=== PATIENT | male | born 1990 | race Two or more races ===

== ENCOUNTER 2017-10-09 02:46 | Emergency (ER) | payer SELFPAY ==
[~2017-10-09] VITALS: Ht 170.2 cm; Wt 95.3 kg
[2017-10-09 04:44] VITALS: BP 115/68
== END 2017-10-09 05:58 | disposition home or self-care (01) ==
LOC: ER 02:49
DX: T78.40XA Allergy, unspecified, initial encounter (principal)
CPT/HCPCS: 73140

== ENCOUNTER 2019-03-20 16:02 | Emergency (ER) | payer MEDICAID ==
[~2019-03-20] VITALS: Ht 177.8 cm; Wt 99.8 kg
[2019-03-20 17:53] VITALS: BP 102/73
[2019-03-20] MEDS ORDERED: SILVER SULFADIAZINE 1 % TOPICAL CREAM 50GM TOP ONE (20:45)
[2019-03-20] MEDS ORDERED: TETANUS-DIPTH-ACEL PERTUSSIS 0.5ML SYRG IM ONE (21:30)
[2019-03-20] MEDS ORDERED: methylPREDNISolone SOD SUCC 125 MG/2 ML VL IM ONE (21:30)
[2019-03-20] MEDS ORDERED: cefTRIAXone SOD 1,000 MG VL IM ONE (21:30)
[2019-03-20] MEDS ORDERED: KETOROLAC TROMETH 60MG/2ML VIAL IM ONE (21:30)
== END 2019-03-20 23:16 | disposition home or self-care (01) ==
LOC: ER 16:02
DX: T24.212A Burn of second degree of left thigh, initial encounter (principal); T24.211A Burn of second degree of right thigh, initial encounter; T23.202A Burn of second degree of left hand, unspecified site, initial encounter; T23.201A Burn of second degree of right hand, unspecified site, initial encounter; X08.8XXA Exposure to other specified smoke, fire and flames, initial encounter; Y93.89 Activity, other specified; Y92.89 Other specified places as the place of occurrence of the external cause; Y99.8 Other external cause status
CPT/HCPCS: 16020; 73030; 90471; 90715; 96372; 99284; J0696; J1885; J2930

== ENCOUNTER 2019-08-20 14:35 | Emergency (ER) | payer MEDICAID ==
[~2019-08-20] VITALS: Ht 160 cm; Wt 104.3 kg
[2019-08-20 16:25] VITALS: BP 128/69
[2019-08-20] MEDS ORDERED: TETANUS-DIPTH-ACEL PERTUSSIS 0.5ML SYR Tdap IM ONE (16:30)
[2019-08-20] MEDS ORDERED: LIDOCAINE 1% HCL (LOCAL ANESTH.) INJ 20ML MDV IJ ONE (16:30)
== END 2019-08-20 17:04 | disposition home or self-care (01) ==
LOC: ER 14:35
DX: S02.2XXA Fracture of nasal bones, initial encounter for closed fracture (principal); S01.312A Laceration without foreign body of left ear, initial encounter; Y04.2XXA Assault by strike against or bumped into by another person, initial encounter; Y93.89 Activity, other specified; Y92.89 Other specified places as the place of occurrence of the external cause; Y99.8 Other external cause status
CPT/HCPCS: 12013; 70450; 70486; 90471; 90715